=== PATIENT | female | born 1950 | race Native Hawaiian/Other Pacific Islander ===

== ENCOUNTER 2017-05-21 10:56 | Outpatient (CLI) | payer OTHER | END 2017-05-21 12:00 | disposition home or self-care (01) | LOC: MAMMO 10:56 | DX: Z12.31 Encounter for screening mammogram for malignant neoplasm of breast (principal) ==

== ENCOUNTER 2018-03-06 07:44 | Outpatient (CLI) | payer OTHER | END 2018-03-06 22:06 | disposition home or self-care (01) | LOC: NM 07:44 | DX: R10.13 Epigastric pain (principal); R07.89 Other chest pain | CPT/HCPCS: A9500 ==

== ENCOUNTER 2018-04-14 09:33 | Outpatient (CLI) | payer OTHER | END 2018-04-14 19:57 | disposition home or self-care (01) | LOC: RAD 09:33 | DX: R10.13 Epigastric pain (principal); Z12.31 Encounter for screening mammogram for malignant neoplasm of breast; Z13.820 Encounter for screening for osteoporosis; Z78.0 Asymptomatic menopausal state ==

== ENCOUNTER 2018-05-23 13:50 | Outpatient (CLI) | payer OTHER | END 2018-05-23 23:15 | disposition home or self-care (01) | LOC: MAMMO 13:50 | DX: Z12.31 Encounter for screening mammogram for malignant neoplasm of breast (principal) ==

== ENCOUNTER 2018-12-12 09:43 | Outpatient (CLI) | payer OTHER ==
[2018-12-12 10:14] LABS: PLATELET COUNT 303 K/uL (152-353)
[2018-12-12 10:36] LABS: POTASSIUM 4.1 mmol/L (3.6-5.2)
== END 2018-12-12 19:07 | disposition home or self-care (01) ==
LOC: LABW 09:43
PROVIDERS: Nurse Practitioner
DX: Z00.00 Encounter for general adult medical examination without abnormal findings (principal); Z79.899 Other long term (current) drug therapy; R53.82 Chronic fatigue, unspecified; E55.9 Vitamin D deficiency, unspecified
CPT/HCPCS: 36415; 80053; 80061; 81000; 82306; 82607; 84443; 85027

== ENCOUNTER 2019-06-29 08:57 | Outpatient (CLI) | payer OTHER | END 2019-06-29 19:15 | disposition home or self-care (01) | LOC: MAMMO 08:57 | DX: Z12.31 Encounter for screening mammogram for malignant neoplasm of breast (principal) ==

== ENCOUNTER 2020-10-10 11:19 | Outpatient (CLI) | payer OTHER | END 2020-10-10 19:33 | disposition home or self-care (01) | LOC: MAMMO 11:19 | PROVIDERS: ATTEND Internal Medicine | DX: Z12.31 Encounter for screening mammogram for malignant neoplasm of breast (principal) ==

== ENCOUNTER 2021-03-28 10:44 | Outpatient (CLI) | payer OTHER | END 2021-03-28 19:37 | disposition home or self-care (01) | LOC: RAD 10:44 | PROVIDERS: ATTEND Nurse Practitioner Family | DX: Z01.818 Encounter for other preprocedural examination (principal) ==

== ENCOUNTER 2021-06-28 10:47 | Outpatient (CLI) | payer OTHER | END 2021-06-28 18:55 | disposition home or self-care (01) | LOC: RAD 10:47 | PROVIDERS: ATTEND Internal Medicine | DX: N95.8 Other specified menopausal and perimenopausal disorders (principal) ==

== ENCOUNTER 2021-08-21 10:52 | Outpatient (CLI) | payer OTHER ==
[~2021-08-21] VITALS: Ht 152.4 cm; Wt 68.9 kg
== END 2021-08-21 19:35 | disposition home or self-care (01) ==
LOC: INF 10:52
PROVIDERS: ATTEND Internal Medicine Endocrinology, Diabetes & Metabolism
DX: M81.0 Age-related osteoporosis without current pathological fracture (principal)
CPT/HCPCS: 36415; 82310; 96372; J0897

== ENCOUNTER 2021-10-26 13:27 | Outpatient (CLI) | payer OTHER | END 2021-10-26 19:05 | disposition home or self-care (01) | LOC: MAMMO 13:27 | PROVIDERS: ATTEND Internal Medicine | DX: Z12.31 Encounter for screening mammogram for malignant neoplasm of breast (principal) ==

== ENCOUNTER 2022-03-12 09:25 | Outpatient (CLI) | payer OTHER ==
[~2022-03-12] VITALS: Ht 162.6 cm; Wt 69.9 kg
[2022-03-12 09:36] VITALS: BP 131/66; TEMP 98.7
[2022-03-12 10:55] VITALS: BP 128/54; TEMP 98.4
== END 2022-03-12 20:03 | disposition home or self-care (01) ==
LOC: INF 09:25
PROVIDERS: ATTEND Internal Medicine
DX: M81.0 Age-related osteoporosis without current pathological fracture (principal)
CPT/HCPCS: 36415; 82310; 96372; J0897

== ENCOUNTER 2022-10-29 12:50 | Outpatient (CLI) | payer OTHER | END 2022-10-29 20:43 | disposition home or self-care (01) | LOC: MAMMO 12:50 | PROVIDERS: ATTEND Internal Medicine | DX: Z12.31 Encounter for screening mammogram for malignant neoplasm of breast (principal) ==